=== PATIENT | male | born 1955 | race Two or more races ===

== ENCOUNTER 2018-04-28 13:15 | Emergency (ER) | END 2018-04-28 19:02 | disposition left against medical advice (07) ==

== ENCOUNTER 2018-11-25 12:51 | Day surgery (SDC) | payer MEDICARE, OTHER ==
[~2018-11-25] VITALS: Ht 165.1 cm; Wt 94.7 kg
[~2018-11-25 12:51] MED LIST: FINA5TAB4 PO; TAMS0.4C2 PO
[2018-11-25] MEDS ORDERED: LISINOPRIL (14:53)
[2018-11-25] MEDS ORDERED: SIMVASTATIN (14:53)
[2018-11-25] MEDS ORDERED: IBUPROFEN (14:53)
[2018-11-25] MEDS ORDERED: FINASTERIDE (14:53)
[2018-11-25] MEDS ORDERED: PANTOPRAZOLE (14:53)
[2018-11-25] MEDS ORDERED: TAMSULOSIN (14:53)
[2018-11-25] MEDS ORDERED: VITAMIN D2 (14:53)
[2018-11-25] MEDS ORDERED: GLYBURIDE (14:53)
[2018-11-25 15:01] VITALS: Ht 165.1 cm; Wt 94.7 kg
[2018-11-25 15:05] VITALS: BP 141/79; PULSE 73; RESP 16
--- NOTE | 2018-11-25 15:09 | PREAC ---
Date/Time of Note Date/Time of Note DATE: 11/25/18 TIME: 15:06 Anesthesia Eval and Record Evaluation Time Pre-Procedure Interview DATE: 11/25/18 TIME: 15:06 Age 63 Sex male NPO: 8 hrs Preoperative diagnosis screening Planned procedure colonoscopy Past Medical History Past Medical History: Includes Cardio: HTN, Dyslipidemia Endo: Diabetes Renal: BPH GI: Obesity Psych: Other (chronicback pain) Surgery & Anesthesia Issues No known issue Meds Anticoagulation: No Beta Owen within 24 hr: No Reason Beta Owen not given: Pt. not on B-Owen Reported Medications [Ibuprofen] No Conflict Check 11/25/18 [Vitamin D2] No Conflict Check 11/25/18 [Lisinopril] No Conflict Check 11/25/18 [Finasteride] No Conflict Check 11/25/18 [Tamsulosin] No Conflict Check 11/25/18 [Glyburide] No Conflict Check 11/25/18 [Simvastatin] No Conflict Check 11/25/18 [Pantoprazole] No Conflict Check 11/25/18 Finasteride* (Finasteride*) 5 Mg Tablet, 5 MG PO QAM, TAB 04/28/18 Tamsulosin Hcl* (Tamsulosin Hcl*) 0.4 Mg Cap.er.24h, 0.4 MG PO HS, CAP 04/28/18 Meds reviewed: Yes Allergies Coded Allergies: No Known Allergy (Unverified , 04/28/18) Allergies Reviewed: Yes Labs/Studies Labs Reviewed: Reviewed by anesthesiologist test: N/A Pre-procedure Exam Airway: Adequate mouth opening, Adequate thyromental dist Mallampati: Mallampati II Teeth: Normal Lung: Normal Heart: Normal ASA Physical Status ASA physical status: 2 Emergency: None Planned Anesthetic General/MAC: Mask Planned Pain Management Parenteral pain med Pre-operative Attestations Prior to commencing anesthesia and surgery, the patient was re-evaluated, there was verification of: *The patient's identity *The results of appropriate recent lab work and preoperative vital signs *The above evaluation not changing prior to induction *Anesthetic plan, risk benefits, alternative and complications discussed with patient/family; questions answered; patient/family understands, accepts and wishes to proceed. ROGER URBINA MD Nov 25, 2018 15:09
[2018-11-25] MEDS ORDERED: PROPOFOL 40 ML ONE (15:15)
[2018-11-25] MEDS ORDERED: LIDOCAINE 2% (SDV) 5 ML INJ ONE (15:15)
[2018-11-25] MEDS ORDERED: ONDANSETRON 4 MG INJ IV PRN (15:30)
[2018-11-25] MEDS ORDERED: HYDROmorphONE 1 MG/5 ML IV SYRINGE IV PRN ×2 (15:30)
--- NOTE | 2018-11-25 15:43 | PAC ---
Date/Time of Note Date/Time of Note DATE: 11/25/18 TIME: 15:42 Post-Anesthesia Notes Post-Anesthesia Note Last documented vital signs Vital Signs Date Temp Pulse Resp B/P (MAP) Pulse Ox O2 O2 Flow FiO2 Time Delivery Rate 11/25/18 97.9 73 16 141/79 97 Room Air 15:05 (99) Activity: WNL Respiratory function: WNL Cardiovascular function: WNL Mental status: Baseline Pain reasonably controlled: Yes Hydration appropriate: Yes Nausea/Vomiting absent: Yes Comments BP: 90/62 HR: 69 RR: 15 T; 98 SaO2: 97% ROGER URBINA MD Nov 25, 2018 15:43
[2018-11-25 15:55] VITALS: BP 120/69; PULSE 63; RESP 18
[2018-11-25 16:10] VITALS: BP 138/84; PULSE 72
== END 2018-11-25 17:06 | disposition home or self-care (01) ==
LOC: GIL 12:51
PROVIDERS: ATTEND Internal Medicine Gastroenterology
DX: Z12.11 Encounter for screening for malignant neoplasm of colon (principal); D12.3 Benign neoplasm of transverse colon; I10 Essential (primary) hypertension; E11.9 Type 2 diabetes mellitus without complications; E78.5 Hyperlipidemia, unspecified
CPT/HCPCS: 82962; 88305